=== PATIENT | male | born 1980 ===

== ENCOUNTER 2025-01-12 20:16 | Emergency (ER) | payer SELFPAY ==
[~2025-01-12] VITALS: Ht 170.2 cm; Wt 77.3 kg
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
[2025-01-12 20:54] VITALS: BP 138/89; PULSE 102; RESP 18; TEMP 98.3; O2SAT 98
== END 2025-01-12 21:13 ==
LOC: ER 20:18
DX: S00.01XA Abrasion of scalp, initial encounter (principal); V98.8XXA Other specified transport accidents, initial encounter; Y93.89 Activity, other specified; Y92.89 Other specified places as the place of occurrence of the external cause; Y99.8 Other external cause status
CPT/HCPCS: 99283; A6258